=== PATIENT | female | born 1985 | race Caucasian/White ===

== ENCOUNTER → 2018-12-12 | Outpatient (REF) | payer BC ==
[2018-12-17 00:08] LABS: HPV HYBRID CAPTURE II Negative (Negative)
== END ==
LOC: M LAB REF 13:10
PROVIDERS: ATTEND Family Medicine
DX: Z01.419 Encounter for gynecological examination (general) (routine) without abnormal findings (principal)
CPT/HCPCS: 87624; G0123

== ENCOUNTER → 2019-02-05 | Outpatient (REF) | payer BC ==
[2019-02-05 17:15] LABS: HEMOGLOBIN 12.3 g/dl (12.0-15.5); MEAN CORPUSCULAR HEMOGLOBIN 29.9 pg (27.0-33.0); MEAN CORPUSCULAR HGB CONC 33.2 g/dl (32.0-36.5); PLATELET COUNT, AUTOMATED 183 10^3/uL (150-450); RED BLOOD COUNT 4.11 10^6/uL (4.00-5.40); WHITE BLOOD COUNT 8.4 10^3/uL (4.0-10.0)
[2019-02-05 22:26] LABS: HCG, SERUM QUANTITATIVE 9832 MIU/ML
[2019-02-06 09:54] LABS: RUBELLA IgG QUALITATIVE IMMUNE (IMMUNE)
[2019-02-06 10:32] LABS: HEPATITIS C VIRUS ABY INDEX 0.1 INDEX (<0.8); HIV 1&2 SCREEN CENTAUR NEGATIVE (NEGATIVE)
== END ==
LOC: M LAB REF 16:30
PROVIDERS: ATTEND Nurse Practitioner Women's Health
DX: Z34.81 Encounter for supervision of other normal pregnancy, first trimester (principal)

== ENCOUNTER → 2019-07-24 | Outpatient (CLI) | payer BC ==
[2019-07-24 09:13] LABS: HEMATOCRIT 33.7 % (36.0-47.0); HEMOGLOBIN 11.3 g/dl (12.0-15.5); MEAN CORPUSCULAR HEMOGLOBIN 31.9 pg (27.0-33.0); MEAN CORPUSCULAR HGB CONC 33.5 g/dl (32.0-36.5); MEAN CORPUSCULAR VOLUME 95.2 fl (80.0-96.0); PLATELET COUNT, AUTOMATED 145 10^3/uL (150-450); RED BLOOD COUNT 3.54 10^6/uL (4.00-5.40); WHITE BLOOD COUNT 10.7 10^3/uL (4.0-10.0)
== END ==
LOC: M LAB 07:15
PROVIDERS: ATTEND Nurse Practitioner Women's Health
DX: Z34.83 Encounter for supervision of other normal pregnancy, third trimester (principal); Z36.89 Encounter for other specified antenatal screening

== ENCOUNTER → 2019-08-28 | Outpatient (REF) | payer BC | LOC: M LAB REF 12:31 | PROVIDERS: ATTEND Obstetrics & Gynecology | DX: Z34.83 Encounter for supervision of other normal pregnancy, third trimester (principal); Z36.85 Encounter for antenatal screening for Streptococcus B ==

== ENCOUNTER 2019-10-06 17:16 | Inpatient (IN) | payer BC ==
[~2019-10-06] VITALS: Ht 170.2 cm; Wt 78.5 kg
[2019-10-06] VITALS (15 sets, daily range): BP systolic 102–147; BP diastolic 56–84
[2019-10-06] MEDS ORDERED: LR 300 ML IV SCH (17:45)
[2019-10-06] MEDS ORDERED: OXYTOCIN DRIP 30 UNITS in IV 1 EA IV SCH ×2 (18:15→23:46)
[2019-10-06] MEDS ORDERED: TUMS500C PO (18:16)
[2019-10-06] MEDS ORDERED: PRENTAB9 PO (18:16)
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
[2019-10-06] MEDS ORDERED: LR 1,000 ML IV SCH (18:45)
[2019-10-06 19:17] LABS: MEAN CORPUSCULAR HEMOGLOBIN 30.6 pg (27.0-33.0); MEAN CORPUSCULAR HGB CONC 33.3 g/dl (32.0-36.5); MEAN CORPUSCULAR VOLUME 91.7 fl (80.0-96.0); PLATELET COUNT, AUTOMATED 163 10^3/uL (150-450); WHITE BLOOD COUNT 14.5 10^3/uL (4.0-10.0)
[2019-10-06] MEDS ORDERED: FENTANYL 2MCG/ML ROPIVACAINE 0.2% IN 0.9% NACL 100ML IVBAG As Ordered ONE (20:16)
[2019-10-06] MEDS ORDERED: REFRIGERATOR IV KEYS XX PRN (23:00)
[2019-10-06] MEDS ORDERED: LACTATED RINGER'S 1000 ML IV PRN (23:00)
[2019-10-06] MEDS ORDERED: ePHEDrine SULFATE 25 MG/5 ML(5MG/ML) SYRINGE IV PRN (23:00)
[2019-10-06] MEDS ORDERED: diphenhydrAMINE INJ 50MG/ML VIAL (J1200) IV PRN (23:00)
[2019-10-06] MEDS ORDERED: EPIDURAL/PCA KEYS XX PRN (23:00)
[2019-10-06] MEDS ORDERED: NALOXONE INJ 0.4 MG/1 ML VIAL (J2310) IV PRN (23:00)
[2019-10-06] MEDS ORDERED: EPIDURAL COMMENT XX SCH (23:00)
[2019-10-06] MEDS ORDERED: FENTANYL/ROPIVACAINE/NACL BAG 100 ML EPIDURAL SCH (23:00)
[2019-10-06] MEDS ORDERED: ONDANSETRON 4MG/2ML VIAL (J2405) IV PRN (23:00)
[2019-10-07] MEDS ORDERED: ACETAMINOPHEN TAB 650MG DOSE (2X325MG) PO PRN
[2019-10-07] MEDS ORDERED: METHYLERGONOVINE MALEATE 0.2 MG TAB PO PRN
[2019-10-07] MEDS ORDERED: RHOGAM 300 MCG (1500 IU) INJ (J2790) IM SCH
[2019-10-07] MEDS ORDERED: IBUPROFEN 600 MG TAB PO PRN
[2019-10-07] MEDS ORDERED: MEASLES,MUMPS,RUBELLA VACCINE INJ (MMR-II) (90707) SC SCH
[2019-10-07] MEDS ORDERED: DOCUSATE SODIUM 100 MG CAP PO PRN
[2019-10-07] MEDS ORDERED: ACETAMINOPHEN 500 MG TAB PO PRN
[2019-10-07] MEDS ORDERED: DIBUCAINE 1% OINTMENT 30GM TOP PRN
[2019-10-07 00:09] LABS: CORD GAS ABE A -4.3; CORD GAS HCO3 A 23.7 MEQ/L; CORD GAS O2 SAT A 35.6 %; CORD GAS PCO2 A 55.8 mmHg; CORD GAS PH A 7.246 UNITS; CORD GAS PO2 A 18.4 mmHg; CORD GAS SBC A 19.6 MEQ/L; CORD GAS TCO2 A 25.4 MEQ/L
[2019-10-07 00:10] LABS: CORD GAS ABE V -1.3; CORD GAS HCO3 V 23.1 MEQ/L; CORD GAS O2 SAT V 86.8 %; CORD GAS PCO2 V 38.3 mmHg; CORD GAS PH V 7.399 UNITS; CORD GAS PO2 V 42.8 mmHg; CORD GAS SBC V 23.1 MEQ/L; CORD GAS TCO2 V 24.3 MEQ/L
[2019-10-07 00:19] VITALS: BP 113/59
--- NOTE | 2019-10-07 00:20 | DN ---
DATE: 10/06/2019 Linn is a 33-year-old female 2, para 1-0-0-1 who is admitted at 40-1/7 weeks gestation. She underwent artificial rupture of membranes with Pitocin augmentation, delivered a live female in left occiput anterior position with nuchal cord times one, scores 8 and 9, weight 6 pounds 15 ounces. Placenta delivered spontaneously intact. Three-vessel cord. Perineum, vagina and cervix inspected. Second-degree midline perineal laceration noted, which was repaired using #2-0 chromic. Estimated blood loss 300 mL. Both mother and baby in stable condition.
[2019-10-07 00:33] VITALS: BP 110/60
[2019-10-07 00:49] VITALS: BP 108/63
[2019-10-07 01:50] VITALS: BP 109/56
[2019-10-07] MEDS: IBUPROFEN 800 MG TAB PO PRN ×2 (05:58→15:40)
[2019-10-07 06:00] VITALS: BP 102/58
[2019-10-07] MEDS: PRENATAL VITAMINS CHEWABLE TABLET PO SCH (09:28)
[2019-10-07 17:48] VITALS: BP 102/60
[2019-10-08 06:00] VITALS: BP 110/64
[2019-10-08 08:15] VITALS: BP 110/64
[2019-10-08] MEDS: PRENATAL VITAMINS CHEWABLE TABLET PO SCH (09:00)
== END 2019-10-08 11:10 | disposition home or self-care (01) | DRG 560 ==
LOC: M LDI 17:16 → M OBS 10-07 01:29
PROVIDERS: ADMIT Obstetrics & Gynecology; ATTEND Obstetrics & Gynecology
PROC: 10E0XZZ Delivery of Products of Conception, External Approach (ICD-10-PCS; principal; 2019-10-06)
PROC: 0KQM0ZZ Repair Perineum Muscle, Open Approach (ICD-10-PCS; 2019-10-06)
DX: O48.0 Post-term pregnancy (principal); O69.82X0 Labor and delivery complicated by other cord entanglement, without compression, not applicable or unspecified; Z37.0 Single live birth; Z3A.40 40 weeks gestation of pregnancy; Z88.2 Allergy status to sulfonamides; Z88.8 Allergy status to other drugs, medicaments and biological substances; O70.1 Second degree perineal laceration during delivery

== ENCOUNTER 2019-10-19 19:52 | Observation (INO) | payer BC ==
[~2019-10-19] VITALS: Ht 170.2 cm; Wt 69.3 kg
[~2019-10-19 19:52] MED LIST: PRENTAB9 PO; TUMS500C PO
[2019-10-19 20:20] LABS: BASO % 0.2 % (0.0-1.0); EOS # 0.1 10^3/uL (0.0-0.5); EOS % 0.4 % (0.0-3.0); HEMATOCRIT 30.9 % (36.0-47.0); LYMPH # 1.7 10^3/uL (1.5-5.0); MEAN CORPUSCULAR HEMOGLOBIN 30.1 pg (27.0-33.0); MEAN CORPUSCULAR HGB CONC 32.4 g/dl (32.0-36.5); MEAN CORPUSCULAR VOLUME 93.1 fl (80.0-96.0); MONO # 0.9 10^3/uL (0.0-0.8); MONO % 4.8 % (0.0-5.0); NEUTROPHILS % 85.1 % (36.0-66.0); PLATELET COUNT, AUTOMATED 213 10^3/uL (150-450); RED BLOOD COUNT 3.32 10^6/uL (4.00-5.40); WHITE BLOOD COUNT 18.8 10^3/uL (4.0-10.0)
[2019-10-19 20:31] LABS: INR 1.16; PARTIAL THROMBOPLASTIN TIME 32.8 SECONDS (25.0-38.4); PROTHROMBIN TIME 14.5 SECONDS (11.8-14.0)
[2019-10-19 20:46] LABS: BLOOD UREA NITROGEN 11 MG/DL (7-18); CALCIUM LEVEL 7.9 MG/DL (8.5-10.1); CARBON DIOXIDE LEVEL 25 MEQ/L (21-32); CHLORIDE LEVEL 106 MEQ/L (98-107); CREATININE FOR GFR 0.82 MG/DL (0.55-1.30); GLOMERULAR FILTRATION RATE > 60.0 (>60); GLUCOSE, FASTING 106 MG/DL (70-100); POTASSIUM SERUM 3.8 MEQ/L (3.5-5.1); SODIUM LEVEL 137 MEQ/L (136-145)
--- NOTE | 2019-10-19 21:13 | REPVR ---
PROCEDURE INFORMATION: Exam: US Pelvis Complete, Transabdominal Exam date and time: 10/19/2019 8:58 PM Age: 33 years old Clinical indication: Menstruation abnormalities; Excessive menstruation; Other: S/P delivery; Additional info: Severe vag bleeding 2 weeks after delivery, eval rpoc TECHNIQUE: Imaging protocol: Real-time transabdominal pelvic ultrasound with image documentation. Complete exam. COMPARISON: US OBS FOLL UP OR REPEAT EACH GES 06/25/2016 1:40 PM FINDINGS: FINDINGS: Uterus measures 16 x 8.8 x 10.3 cm in size. No focal uterine mass. Uterus is anteverted in position. Endometrial stripe appears heterogeneous, measuring 68 mm in thickness. No discernible Doppler flow Right ovary measures 2.9 x 2.2 x 2.4 cm in size. No dominant mass or cyst. Left ovary measures 3.5 x 2.1 x 2.8 cm in size. No dominant mass or cyst. Doppler flow is documented in both ovaries. No abnormal volume of free fluid within the pelvis. IMPRESSION: Enlarged uterus consistent with early state, with thickened heterogeneous endometrium measuring 68 mm in thickness. No abnormal endometrial Doppler flow to strongly suggest retained products of conception, although this is difficult to exclude completely. The appearance is most suggestive of endometrial clot. Electronically signed by: Elvin Heart On 10/19/2019 21:12:47 PM
[2019-10-19] MEDS ORDERED: METHYLERGONOVINE MALEATE 0.2 MG/ML VIAL (J2210) IM ONE (21:30)
[2019-10-19] MEDS ORDERED: NS 1,000 ML IV ONE (21:30)
[2019-10-20 01:30] LABS: HEMATOCRIT 25.6 % (36.0-47.0); HEMOGLOBIN 8.5 g/dl (12.0-15.5); MEAN CORPUSCULAR HEMOGLOBIN 30.5 pg (27.0-33.0); MEAN CORPUSCULAR HGB CONC 33.2 g/dl (32.0-36.5); MEAN CORPUSCULAR VOLUME 91.8 fl (80.0-96.0); PLATELET COUNT, AUTOMATED 188 10^3/uL (150-450); RED BLOOD COUNT 2.79 10^6/uL (4.00-5.40); WHITE BLOOD COUNT 19.1 10^3/uL (4.0-10.0)
[2019-10-20] MEDS ORDERED: ACETAMINOPHEN TAB 650MG DOSE (2X325MG) PO PRN (02:45)
[2019-10-20] MEDS ORDERED: METHYLERGONOVINE MALEATE 0.2 MG TAB PO PRN (02:45)
[2019-10-20] MEDS ORDERED: LR 1,000 ML IV SCH (02:45)
[2019-10-20] MEDS ORDERED: METHYLERGONOVINE MALEATE 0.2 MG TAB PO ONE (03:00)
[2019-10-20 04:00] VITALS: BP 103/53
[2019-10-20 04:30] VITALS: BP_SYST 100; BP_SYST 102; BP_DIAS 55; BP_DIAS 56; BP_DIAS 57
[2019-10-20 06:52] LABS: BASO % 0.1 % (0.0-1.0); EOS # 0.1 10^3/uL (0.0-0.5); EOS % 0.4 % (0.0-3.0); HEMATOCRIT 24.1 % (36.0-47.0); LYMPH # 1.5 10^3/uL (1.5-5.0); LYMPH % 9.7 % (24.0-44.0); MEAN CORPUSCULAR HEMOGLOBIN 30.7 pg (27.0-33.0); MEAN CORPUSCULAR HGB CONC 33.2 g/dl (32.0-36.5); MEAN CORPUSCULAR VOLUME 92.3 fl (80.0-96.0); MONO # 0.7 10^3/uL (0.0-0.8); MONO % 4.7 % (0.0-5.0); NEUTROPHILS # 12.7 10^3/uL (1.5-8.5); NEUTROPHILS % 84.6 % (36.0-66.0); PLATELET COUNT, AUTOMATED 184 10^3/uL (150-450); RED BLOOD COUNT 2.61 10^6/uL (4.00-5.40)
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
[2019-10-20 08:00] VITALS: BP_SYST 104; BP_SYST 105; BP_SYST 91; BP_DIAS 52; BP_DIAS 54; BP_DIAS 58
[2019-10-20] MEDS ORDERED: METH0.2T53 PO (10:09)
== END 2019-10-20 10:50 | disposition home or self-care (01) ==
LOC: M ED 19:52 → M ED INP 19:53 → ENRESERV 10-20 03:12 → M OBS 10-20 04:01
PROVIDERS: ADMIT Obstetrics & Gynecology; ATTEND Obstetrics & Gynecology
DX: O72.2 Delayed and secondary postpartum hemorrhage (principal); Z88.2 Allergy status to sulfonamides; Z88.1 Allergy status to other antibiotic agents
CPT/HCPCS: 36415; 76856; 80048; 85025; 85027; 85610; 85730; 86850; 86900; 86901; 93976; 96360; 96361; 96372; 99285; J2210

== ENCOUNTER → 2019-10-22 | Outpatient (REF) | payer BC ==
[~2019-10-22] MED LIST changes: +METH0.2T53 PO
[2019-10-22 16:52] LABS: BASO % 0.4 % (0.0-1.0); EOS # 0.4 10^3/uL (0.0-0.5); EOS % 5.2 % (0.0-3.0); HEMATOCRIT 25.5 % (36.0-47.0); HEMOGLOBIN 8.2 g/dl (12.0-15.5); LYMPH % 27.7 % (24.0-44.0); MEAN CORPUSCULAR HEMOGLOBIN 30.5 pg (27.0-33.0); MEAN CORPUSCULAR HGB CONC 32.2 g/dl (32.0-36.5); MEAN CORPUSCULAR VOLUME 94.8 fl (80.0-96.0); MONO # 0.7 10^3/uL (0.0-0.8); MONO % 9.8 % (0.0-5.0); NEUTROPHILS # 4.1 10^3/uL (1.5-8.5); NEUTROPHILS % 56.6 % (36.0-66.0); PLATELET COUNT, AUTOMATED 176 10^3/uL (150-450); RED BLOOD COUNT 2.69 10^6/uL (4.00-5.40); WHITE BLOOD COUNT 7.3 10^3/uL (4.0-10.0)
== END ==
LOC: M LABDRWAD 16:26
PROVIDERS: ATTEND Nurse Practitioner Family
DX: O72.2 Delayed and secondary postpartum hemorrhage (principal)

== ENCOUNTER → 2019-11-02 | Outpatient (REF) | payer BC ==
[2019-11-02 12:54] LABS: BASO # 0.1 10^3/uL (0.0-0.2); BASO % 0.6 % (0.0-1.0); EOS # 0.3 10^3/uL (0.0-0.5); EOS % 3.1 % (0.0-3.0); HEMATOCRIT 30.1 % (36.0-47.0); HEMOGLOBIN 9.5 g/dl (12.0-15.5); LYMPH # 2.8 10^3/uL (1.5-5.0); LYMPH % 31.4 % (24.0-44.0); MEAN CORPUSCULAR HEMOGLOBIN 29.8 pg (27.0-33.0); MEAN CORPUSCULAR HGB CONC 31.6 g/dl (32.0-36.5); MEAN CORPUSCULAR VOLUME 94.4 fl (80.0-96.0); MONO # 0.6 10^3/uL (0.0-0.8); MONO % 6.4 % (0.0-5.0); NEUTROPHILS # 5.3 10^3/uL (1.5-8.5); NEUTROPHILS % 58.3 % (36.0-66.0); PLATELET COUNT, AUTOMATED 319 10^3/uL (150-450); RED BLOOD COUNT 3.19 10^6/uL (4.00-5.40)
== END ==
LOC: M LABDRWAD 12:21
PROVIDERS: ATTEND Nurse Practitioner Family
DX: O72.2 Delayed and secondary postpartum hemorrhage (principal)

== ENCOUNTER → 2021-02-20 | Outpatient (REF) | payer BC ==
[2021-02-20 17:41] LABS: BASO % 0.4 % (0.0-1.0); EOS # 0.1 10^3/uL (0.0-0.5); EOS % 1.2 % (0.0-3.0); HEMATOCRIT 41.1 % (36.0-47.0); HEMOGLOBIN 13.6 g/dl (12.0-15.5); LYMPH # 2.1 10^3/uL (1.5-5.0); MEAN CORPUSCULAR HGB CONC 33.1 g/dl (32.0-36.5); MEAN CORPUSCULAR VOLUME 93.6 fl (80.0-96.0); MONO # 0.6 10^3/uL (0.0-0.8); MONO % 7.1 % (2.0-8.0); NEUTROPHILS # 5.6 10^3/uL (1.5-8.5); NEUTROPHILS % 66.2 % (36.0-66.0); PLATELET COUNT, AUTOMATED 196 10^3/uL (150-450); RED BLOOD COUNT 4.39 10^6/uL (4.00-5.40); WHITE BLOOD COUNT 8.4 10^3/uL (4.0-10.0)
[2021-02-20 18:05] LABS: ALBUMIN 4.3 GM/DL (3.2-5.2); ALT/SGPT 20 U/L (12-78); BILIRUBIN,TOTAL 0.6 MG/DL (0.2-1.0); BLOOD UREA NITROGEN 14 MG/DL (7-18); CALCIUM LEVEL 9.2 MG/DL (8.5-10.1); CARBON DIOXIDE LEVEL 28 MEQ/L (21-32); CHLORIDE LEVEL 108 MEQ/L (98-107); CHOLESTEROL LEVEL 153 MG/DL (<200); CHOLESTEROL RISK RATIO 2.428 (<5); CREATININE FOR GFR 0.88 MG/DL (0.55-1.30); GLOMERULAR FILTRATION RATE > 60.0 (>60); GLUCOSE, FASTING 74 MG/DL (70-100); HDL CHOLESTEROL 63 MG/DL (>40); LDL CHOLESTEROL 70 MG/DL (<100); NON-HDL-C 90 MG/DL; POTASSIUM SERUM 4.1 MEQ/L (3.5-5.1); SODIUM LEVEL 141 MEQ/L (136-145); TOTAL PROTEIN 7.3 GM/DL (6.4-8.2); TRIGLYCERIDES LEVEL 100 MG/DL (<150)
== END ==
LOC: M LABDRWAD 16:56
PROVIDERS: ATTEND Nurse Practitioner Family
DX: Z00.00 Encounter for general adult medical examination without abnormal findings (principal)